=== PATIENT | female | born 1960 | race Caucasian/White ===

== ENCOUNTER 2016-03-27 05:47 | Day surgery (SDC) | payer OTHER ==
[2016-03-27] MEDS ORDERED: ceFAZolin 2 GM/50 ML 50 ML IV ONE (06:35)
[2016-03-27] MEDS ORDERED: ACETAMINOPHEN 1,000 MG/100 ML 100 ML IV ONE (06:36)
[2016-03-27] MEDS ORDERED: LACTATED RINGERS 1,000 ML IV ONE (06:46)
[2016-03-27] MEDS ORDERED: MIDAZOLAM 2 MG/2 ML VIAL IVP ONE (07:30)
[2016-03-27] MEDS ORDERED: fentaNYL 100 MCG/2 ML VIAL IVP ONE (07:30)
[2016-03-27] MEDS ORDERED: PROPOFOL 200 MG/20 ML VIAL IVP ONE (07:30)
[2016-03-27] MEDS ORDERED: BUPIVACAINE 0.25% PF 30 ML VIAL SUBQ ONE ×2 (08:05)
== END 2016-03-27 05:48 | disposition home or self-care (01) ==
PROC: 0LN80ZZ Release Left Hand Tendon, Open Approach (ICD-10-PCS; principal; 2016-03-27 07:30)
DX: M65.342 Trigger finger, left ring finger (principal); J44.9 Chronic obstructive pulmonary disease, unspecified; J45.909 Unspecified asthma, uncomplicated; K21.9 Gastro-esophageal reflux disease without esophagitis; F17.200 Nicotine dependence, unspecified, uncomplicated; K58.9 Irritable bowel syndrome, unspecified; F32.9 Major depressive disorder, single episode, unspecified; E66.9 Obesity, unspecified; Z90.49 Acquired absence of other specified parts of digestive tract; Z96.652 Presence of left artificial knee joint; Z98.84 Bariatric surgery status; Z98.0 Intestinal bypass and anastomosis status; I10 Essential (primary) hypertension; Z68.41 Body mass index [BMI] 40.0-44.9, adult
CPT/HCPCS: 26055; J0131; J0690; J7120